=== PATIENT | female | born 1995 | race African-American/Black ===

== ENCOUNTER 2019-08-20 10:48 | Emergency (ER) | payer SELFPAY ==
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
== END 2019-08-20 13:30 | disposition home or self-care (01) ==
LOC: JD.ED 10:48
DX: T33.531A Superficial frostbite of right finger(s), initial encounter (principal); E66.9 Obesity, unspecified; Z68.41 Body mass index [BMI] 40.0-44.9, adult; Z91.018 Allergy to other foods; Z91.040 Latex allergy status; X31.XXXA Exposure to excessive natural cold, initial encounter
CPT/HCPCS: 99282; 99283

== ENCOUNTER 2019-10-05 11:23 | Emergency (ER) | payer SELFPAY ==
[2019-10-05] MEDS ORDERED: Morphine 4 MG/ML Syringe IVPUSH ONE (11:38)
[2019-10-05] MEDS ORDERED: Ondansetron 4 MG/2 ML SDV IVPUSH ONE (11:38)
[2019-10-05] MEDS ORDERED: Sodium Chloride 0.9% 1,000 ML IV ONE (11:40)
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
[2019-10-05 12:32] LABS: ACETAMINOPHEN 0 ug/mL (10-30)
--- NOTE | 2019-10-05 13:03 | US ---
Limited abdominal ultrasound: Multiple real-time images of the upper right abdomen were obtained. Comparison: No previous study. Liver contains no focal parenchymal abnormality. Contracted gallbladder around gallstones is noted. Common bile duct is dilated up to 9.9 mm. No definite choledocholithiasis is seen although the distal duct is not visualized on this exam. Pancreas should shows no discrete abnormality. Right kidney shows no hydronephrosis or mass. Right kidney has a length of 11.3 cm. Inferior vena cava is patent. Main portal vein shows normal hepatopedal flow. Impression: 1. Contracted gallbladder around gallstones. Common bile duct dilated at 9.9 mm. 2. No additional abnormality is appreciated on right upper quadrant abdominal ultrasound Diagnostic code #3 Study was dictated in [place] Standard Time
[2019-10-05] MEDS ORDERED: HYDROmorphone 0.5 MG/0.5 ML Syringe IVPUSH ONE (13:06)
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
== END 2019-10-05 14:57 | disposition home or self-care (01) ==
LOC: JD.ED 11:23
DX: O99.619 Diseases of the digestive system complicating pregnancy, unspecified trimester (principal); K81.9 Cholecystitis, unspecified; O23.40 Unspecified infection of urinary tract in pregnancy, unspecified trimester; O99.210 Obesity complicating pregnancy, unspecified trimester; Z91.018 Allergy to other foods; Z91.040 Latex allergy status
CPT/HCPCS: 36415; 76705; 80053; 80329; 81001; 83690; 84703; 85025; 87086; 87088; 87186; 96361; 96374; 96375; 99284; J1170; J2270; J2405; J7030; G0480

== ENCOUNTER 2019-10-06 14:35 | Day surgery (SDC) | payer SELFPAY ==
[2019-10-06] MEDS ORDERED: Sodium Chloride 0.9% 1,000 ML IV ONE (14:51)
[2019-10-06] MEDS ORDERED: Sodium Chloride 0.9% 10 ML Syringe FLUSH PRN (14:51)
[2019-10-06] MEDS ORDERED: HYDROmorphone 1 MG/ML Syringe IVPUSH ONE ×2 (14:51→16:37)
[2019-10-06] MEDS ORDERED: Ondansetron 4 MG/2 ML SDV IVPUSH ONE (14:51)
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
[2019-10-06] MEDS ORDERED: Bupivacaine 0.5%/EPINEPHrine 1:200,000 50 ML MDV ONE (16:32)
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
[2019-10-06] MEDS ORDERED: Rocuronium 50 MG/5 ML Vial ONE (17:01)
[2019-10-06] MEDS ORDERED: fentaNYL 250 MCG/5 ML SDV ONE (17:01)
[2019-10-06] MEDS ORDERED: Succinylcholine/Normal Saline 100 MG/5 ML Syringe ONE (17:01)
[2019-10-06] MEDS ORDERED: Propofol 200 MG/20 ML SDV ONE ×3 (17:01→17:45)
[2019-10-06] MEDS ORDERED: HYDROmorphone 0.5 MG/0.5 ML Syringe ONE ×2 (17:24→17:32)
[2019-10-06] MEDS ORDERED: ceFAZolin 1 GM Vial ONE (17:25)
[2019-10-06] MEDS ORDERED: Lidocaine 1% 6 ML ONE (17:27)
[2019-10-06] MEDS ORDERED: Ondansetron 4 MG/2 ML SDV ONE (17:43)
[2019-10-06] MEDS ORDERED: Neostigmine Methylsulfate 1 MG/ML 5 ML Syringe ONE (17:51)
[2019-10-06] MEDS ORDERED: Lactated Ringers 1,000 ML ONE ×2 (18:02)
--- NOTE | 2019-10-06 18:11 | PCM.PRNOTE ---
- Free Text/Narrative Note: Operative Report Operation: laparoscopic cholecystectomy Date: 10/06/2019 Attending Surgeon: Jose Miguel Worley MD Indication for Surgery: acute cholecystitis Preoperative antibiotics: 3 g Ancef IV VTE prophylaxis: SCDs Estimated Blood Loss: 10 cc Findings: Patient noted to be in early first trimester of pre- operatively. Mild omental adhesions to gallbladder, which did not appear acutely inflamed. Numerous gallstones with dilated cystic duct. Detailed Report: The patient underwent general endotracheal anesthesia after being placed supine on the operating table and initial timeout. A lucas catheter was placed. The abdomen was prepped and draped in sterile fashion. A pre-incision timeout was performed confirming the patients identity and the operation to be performed. A Veress needle was inserted into the abdominal cavity below the left costal margin along the mid-clavicular line. The abdomen was insufflated with CO2 to 15 mm Hg. Gas was aspirated superior to the umbilicus with a syringe in order to ensure safe placement of a 5 mm bladed laparoscopic port. The 5mm 30 degree laparoscope was then inserted and viscera inspected. The gallbladder appeared relatively normal but had palpable gallstones. Two additional 5 mm ports were placed along the right subcostal region under direct vision with the laparoscope , and a 12 mm port was placed at the subxiphoid region. The gallbladder was grasped at the fundus with a locking grasper and retracted anteriorly and superiorly, exposing the infundibulum. This was grasped with the surgeons left hand grasper and retracted laterally. The hook electrode was used to open the overlying peritoneum, and this plane of dissection was developed along the edges of the gallbladder at its interface with the liver bed. A combination of hook electrode and the [place] grasper were used to carefully expose and skeletonize the cystic duct and artery. A critical view of safety was obtained. Hemolock clips were then placed on both structures. The duct and artery were transected with laparoscopic scissors between the hemolock clips. The hook was then used to dissect the gallbladder free from its attachment to the liver. The specimen was then placed in an Endocatch bag and removed through the subxiphoid port. The liver bed was inspected and appeared hemostatic. The larger subxiphoid port was closed at the level of the fascia with vicryl suture using the PMI laparoscopic suture passer. Pneumoperitoneum was then released. All skin incisions were then closed with placement of subcuticular vicryl suture and dressed with dermabond. A total of 18 cc 0.5% marcaine with epinephrine was used for local anesthesia at the incision sites. The patient tolerated the operation well, was extubated in the operating room and transferred to the PACU for routine post-anesthesia care. Jose Miguel Worley MD General Surgery
[2019-10-06] MEDS ORDERED: HYDROmorphone 0.5 MG/0.5 ML Syringe IVPUSH PRN (18:34)
[2019-10-06] MEDS ORDERED: fentaNYL 100 MCG/2 ML SDV IVPUSH PRN (18:34)
--- NOTE | 2019-10-06 18:38 | PCM.POSTAN ---
POST ANESTHESIA ASSESSMENT - MENTAL STATUS Mental Status: Somnolent - VITAL SIGNS Vital Signs: Last Vital Signs Temp 97.2 F 10/06/19 18:30 Pulse 92 10/06/19 18:30 Resp 15 10/06/19 18:30 BP 103/60 10/06/19 18:30 Pulse Ox 100 10/06/19 18:30 - RESPIRATORY Respiratory Status: Respiratory Rate WNL, Airway Patent, O2 Saturation Stable, Supplemental Oxygen (FM O2, oral a/w ) - CARDIOVASCULAR CV Status: Blood Pressure Stable, Elevated Pulse Rate - GASTROINTESTINAL GI Status: No Symptoms - PAIN Pain Score: 0 - POST OP HYDRATION Hydration Status: Adequate & Stable
--- NOTE | 2019-10-06 20:02 | PCM48HPAN ---
Post Anesthesia Note - EVALUATION WITHIN 48HRS OF ANESTHETIC Vital Signs in Normal Range: Yes Patient Participated in Evaluation: Yes Respiratory Function Stable: Yes Airway Patent: Yes Cardiovascular Function Stable: Yes Hydration Status Stable: Yes Pain Control Satisfactory: Yes Nausea and Vomiting Control Satisfactory: Yes Mental Status Recovered: Yes Vital Signs: Last Vital Signs Temp 97.1 F 10/06/19 19:30 Pulse 76 10/06/19 19:30 Resp 18 10/06/19 19:30 BP 118/81 10/06/19 19:30 Pulse Ox 93 L 10/06/19 19:30
[2019-10-06] MEDS ORDERED: Acetaminophen 325 MG Tab PO PRN (21:14)
[2019-10-06] MEDS ORDERED: oxyCODONE 5 MG Tab PO PRN (21:16)
[2019-10-06] MEDS: Acetaminophen 325 MG Tab PO PRN (21:51)
[2019-10-07] MEDS: Acetaminophen 325 MG Tab PO PRN (05:39)
--- NOTE | 2019-10-07 07:54 | PCM.DCSUM1 ---
Discharge Summary - Hospital Course Free Text/Narrative:: Presented with ongoing RUQ pain, nausea and vomiting with several gallstones in gallbladder. Underwent routine laparoscopic cholecystectomy 10/06/2019 and stayed in house overnight. She was found to have a positive UA and urine culture from her ED visit on 10/05 and nitrofurantoin was prescribed. - Discharge Data Discharge Date: 10/07/19 Discharge Disposition: Home, Self-Care 01 Condition: Good - Referral to Home Health Primary Care Physician: PCP None - Patient Instructions Diet: Regular Diet as Tolerated Activity: No Lifting Over 10 Pounds Showering/Bathing: January Shower Wound/Incision Care: Keep Operative Site/Wound Site Clean and Dry Notify Provider of: Fever, Increased Pain, Swelling and Redness, Drainage - Discharge Plan *PRESCRIPTION DRUG MONITORING PROGRAM REVIEWED*: Not Applicable *COPY OF PRESCRIPTION DRUG MONITORING REPORT IN PATIENT NASH: Not Applicable Prescriptions/Med Rec: Nitrofurantoin 100 gm MC QID #30 powder oxyCODONE 5 mg PO Q4H #10 tab Home Medications: Home Meds [id number]/Iron Fumarate/FA/DSS [ 19 Tablet] 1 each PO DAILY 08/20/19 [ History] oxyCODONE 5 mg PO Q4H #10 tab 10/06/19 [Rx] Nitrofurantoin 100 gm MC QID #30 powder 10/07/19 [Rx] Patient Handouts: Oxycodone tablets or capsules, Laparoscopic Cholecystectomy, Laparoscopic Cholecystectomy, Care After, [id number], and Urinary Tract Infection Forms: ED Department Discharge Referrals: PCP,None [Primary Care Provider] - - Discharge Summary/Plan Comment DC Time >30 min.: No - Patient Data Vitals - Most Recent: Last Vital Signs Temp 36.6 C 10/06/19 20:03 Pulse 77 10/06/19 20:03 Resp 18 10/06/19 20:03 BP 124/85 10/06/19 20:03 Pulse Ox 99 10/06/19 20:03 Weight - Most Recent: 107.955 kg I&O - Last 24 hours: Intake & Output 10/06/19 10/07/19 10/07/19 22:59 06:59 14:59 Intake Total 1880 620 Output Total 550 900 Balance 1330 -280 Lab Results - Last 24 hrs: Laboratory Results - last 24 hr 10/06/19 10/06/19 Range/Units 15:10 15:10 WBC 6.76 (3.98-10.04) K/mm3 RBC 4.76 (3.98-5.22) M/mm3 Hgb 13.0 (11.2-15.7) gm/dl Hct 40.4 (34.1-44.9) % MCV 84.9 (79.4-94.8) fl MCH 27.3 (25.6-32.2) pg MCHC 32.2 (32.2-35.5) g/dl RDW Std Deviation 41.9 (36.4-46.3) fL Plt Count 374 H (182-369) K/mm3 MPV 10.1 (9.4-12.3) fl Neut % (Auto) 39.1 (34.0-71.1) % Lymph % (Auto) 51.2 (19.3-51.7) % [place] % (Auto) 8.9 (4.7-12.5) % Eos % (Auto) 0.4 L (0.7-5.8) Baso % (Auto) 0.3 (0.1-1.2) % Neut # (Auto) 2.64 (1.56-6.13) K/mm3 Lymph # (Auto) 3.46 (1.18-3.74) K/mm3 [place] # (Auto) 0.60 H (0.24-0.36) K/mm3 Eos # (Auto) 0.03 L (0.04-0.36) K/mm3 Baso # (Auto) 0.02 (0.01-0.08) K/mm3 Sodium 136 (136-145) mEq/L Potassium 3.8 (3.5-5.1) mEq/L Chloride 102 (98-107) mEq/L Carbon Dioxide 21 (21-32) mEq/L Anion Gap 16.8 H (5-15) BUN 7 (7-18) mg/dL Creatinine 0.7 (0.55-1.02) mg/dL Est Cr Clr Drug Dosing 107.01 mL/min Estimated GFR (MDRD) > 60 (>60) mL/min BUN/Creatinine Ratio 10.0 L (14-18) Glucose 88 (74-106) mg/dL Calcium 9.1 (8.5-10.1) mg/dL Total Bilirubin 0.6 (0.2-1.0) mg/dL AST 11 L (15-37) U/L ALT 26 (14-59) U/L Alkaline Phosphatase 84 (46-116) U/L Total Protein 7.4 (6.4-8.2) g/dl Albumin 3.7 (3.4-5.0) g/dl Globulin 3.7 gm/dL Albumin/Globulin Ratio 1.0 (1-2) Lipase 46 L (73-393) U/L Med Orders - Current: Current Medications Acetaminophen (Tylenol) 650 mg PO Q6H PRN PRN Reason: Pain Last Admin: 10/07/19 05:39 Dose: 650 mg Oxycodone HCl (Oxycodone) 5 mg PO Q4H PRN PRN Reason: Pain Sodium Chloride (Saline Flush) 10 ml FLUSH ASDIRECTED PRN PRN Reason: Keep Vein Open Last Admin: 10/06/19 15:16 Dose: 10 ml Discontinued Medications Bupivacaine HCl/Epinephrine Bitart (Marcaine 0.5%/Epinephrine 1:200,000) Confirm Administered Dose 50 ml .ROUTE .STK-MED ONE Stop: 10/06/19 16:33 Last Admin: 10/06/19 17:26 Dose: 18 ml Cefazolin Sodium (Ancef) Confirm Administered Dose 3 gm .ROUTE .STK-MED ONE Stop: 10/06/19 17:26 Fentanyl (Sublimaze) Confirm Administered Dose 250 mcg .ROUTE .STK-MED ONE Stop: 10/06/19 17:02 Fentanyl (Sublimaze) 100 mcg IVPUSH ONETIME PRN PRN Reason: Pain Last Admin: 10/06/19 18:47 Dose: 100 mcg Glycopyrrolate () Confirm Administered Dose 1 mg .ROUTE .STK-MED ONE Stop: 10/06/19 17:25 Hydromorphone HCl (Dilaudid) 1 mg IVPUSH ONETIME ONE Stop: 10/06/19 14:52 Last Admin: 10/06/19 15:16 Dose: 1 mg Hydromorphone HCl (Dilaudid) 1 mg IVPUSH ONETIME ONE Stop: 10/06/19 16:38 Last Admin: 10/06/19 16:45 Dose: 1 mg Hydromorphone HCl (Dilaudid) Confirm Administered Dose 0.5 mg .ROUTE .STK-MED ONE Stop: 10/06/19 17:25 Hydromorphone HCl (Dilaudid) Confirm Administered Dose 0.5 mg .ROUTE .STK-MED ONE Stop: 10/06/19 17:33 Hydromorphone HCl (Dilaudid) 0.5 mg IVPUSH Q10M PRN PRN Reason: Pain (severe 7-10) Last Admin: 10/06/19 19:05 Dose: 0.5 mg Sodium Chloride (Normal Saline) 1,000 mls @ 1,000 mls/hr IV ONETIME ONE Stop: 10/06/19 15:50 Last Admin: 10/06/19 15:15 Dose: 1,000 mls/hr Lidocaine HCl (Xylocaine-Mpf 1%) Confirm Administered Dose 6 mls @ as directed .ROUTE .ST-MED ONE Stop: 10/06/19 17:28 Lactated Ringer's (Ringers, Lactated) Confirm Administered Dose 1,000 mls @ as directed .ROUTE .ST-MED ONE Stop: 10/06/19 18:03 Lactated Ringer's (Ringers, Lactated) Confirm Administered Dose 1,000 mls @ as directed .ROUTE .STK-MED ONE Stop: 10/06/19 18:03 Neostigmine Methylsulfate (Neostigmine) Confirm Administered Dose 5 mg .ROUTE .ST-MED ONE Stop: 10/06/19 17:52 Ondansetron HCl (Zofran) 4 mg IVPUSH ONETIME ONE Stop: 10/06/19 14:52 Last Admin: 10/06/19 15:15 Dose: 4 mg Ondansetron HCl (Zofran) Confirm Administered Dose 8 mg .ROUTE .STK-MED ONE Stop: 10/06/19 17:44 Propofol (Diprivan 20 Ml) Confirm Administered Dose 600 mg .ROUTE .STK-MED ONE Stop: 10/06/19 17:02 Propofol (Diprivan 20 Ml) Confirm Administered Dose 200 mg .ROUTE .STK-MED ONE Stop: 10/06/19 17:04 Propofol (Diprivan 20 Ml) Confirm Administered Dose 600 mg .ROUTE .STK-MED ONE Stop: 10/06/19 17:46 Rocuronium [place] (Zemuron) Confirm Administered Dose 50 mg .ROUTE .STK-MED ONE Stop: 10/06/19 17:02 Succinylcholine Chloride (Succinylcholine In Ns Pf) Confirm Administered Dose 200 mg .ROUTE .STK-MED ONE Stop: 10/06/19 17:02
[2019-10-07] MEDS ORDERED: Nitrofurantoin Monohydrate/Macrocrystalline 100 MG Cap PO ONE (08:00)
== END 2019-10-07 15:05 | disposition home or self-care (01) ==
LOC: JD.ED 14:35 → JD.SDS 16:51 → JD.MS 20:13 → JD.SDS 10-07 15:05
PROVIDERS: ATTEND Surgery
DX: O99.611 Diseases of the digestive system complicating pregnancy, first trimester (principal); K80.10 Calculus of gallbladder with chronic cholecystitis without obstruction; E66.9 Obesity, unspecified; Z91.018 Allergy to other foods; Z91.040 Latex allergy status; Z68.41 Body mass index [BMI] 40.0-44.9, adult
CPT/HCPCS: 36415; 47562; 80053; 83690; 85025; A9270; J0330; J0690; J1170; J2001; J2405; J2704; J2710; J3010; J3490; J7030; J7120; 00790; 96361; 96374; 96375; 99284; 99284-25

== ENCOUNTER 2019-10-28 20:30 | Emergency (ER) | payer SELFPAY ==
[2019-10-28] MEDS ORDERED: Sodium Chloride 0.9% 10 ML Syringe FLUSH PRN (21:21)
[2019-10-28] MEDS ORDERED: Ondansetron 4 MG/2 ML SDV IVPUSH ONE (21:21)
[2019-10-28] MEDS ORDERED: Sodium Chloride 0.9% 1,000 ML IV SCH (21:30)
[2019-10-28] MEDS ORDERED: Alum Hydrox/Mag Hydrox/Simeth 30 ML, Lidocaine 2% 15 ML PO ONE ×2 (21:38)
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
[2019-10-28] MEDS ORDERED: Magnesium Citrate Solution 296 ML Bottle PO ONE (22:37)
== END 2019-10-28 23:15 | disposition home or self-care (01) ==
LOC: JD.ED 20:30
DX: O99.611 Diseases of the digestive system complicating pregnancy, first trimester (principal); K29.70 Gastritis, unspecified, without bleeding; O99.211 Obesity complicating pregnancy, first trimester; E66.9 Obesity, unspecified; Z3A.09 9 weeks gestation of pregnancy; Z90.49 Acquired absence of other specified parts of digestive tract; Z91.040 Latex allergy status; Z88.8 Allergy status to other drugs, medicaments and biological substances; Z91.018 Allergy to other foods
CPT/HCPCS: 36415; 80053; 81001; 85025; 96361; 96374; 99284; A9270; J2405; J7030

== ENCOUNTER 2020-04-06 18:47 | Emergency (ER) | payer MEDICAID ==
[2020-04-06] MEDS ORDERED: Betamethasone Acetate/Betamethasone Sod Phosphate 30 MG/5 ML MDV IM ONE (18:50)
== END 2020-04-06 18:48 | disposition home or self-care (01) ==
LOC: JD.ED 18:47 → JD.WOMH 18:47 → JD.ED 18:47 → JD.WOMH 18:48
DX: O60.03 Preterm labor without delivery, third trimester (principal); Z3A.32 32 weeks gestation of pregnancy
CPT/HCPCS: J0702

== ENCOUNTER 2020-05-25 04:38 | Inpatient (IN) | payer MEDICAID ==
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
[~2020-05-25 04:38] MED LIST: Lactated Ringers 1,000 ML IV SCH; Oxytocin/Lactated Ringers 10 UNIT/1,000 ML BAG IV SCH; Sodium Chloride 0.9% 10 ML Syringe FLUSH PRN
[2020-05-25] MEDS ORDERED: Metoclopramide 10 MG/2 ML SDV IVPUSH ONE (06:00)
[2020-05-25] MEDS ORDERED: Citric Acid/Sodium Citrate Solution 30 ML Cup PO ONE (06:00)
[2020-05-25] MEDS ORDERED: ceFAZolin 2 GM in Premix Bag 1 BAG IV ONE (06:30)
[2020-05-25] MEDS ORDERED: Bupivacaine 0.5% 30 ML SDV ONE (07:10)
[2020-05-25] MEDS ORDERED: ceFAZolin 1 GM Vial ONE (07:14)
[2020-05-25] MEDS ORDERED: Phenylephrine 1% 10 MG/ML SDV ONE (07:14)
[2020-05-25] MEDS ORDERED: Morphine 10 MG/ML SDV ONE (07:16)
[2020-05-25] MEDS ORDERED: Morphine PF 1 MG/ML Amp ONE (07:16)
[2020-05-25] MEDS ORDERED: Oxytocin 10 Units/1 ML SDV ONE (07:17)
[2020-05-25] MEDS ORDERED: Ketorolac 30 MG/ML SDV ONE (07:17)
[2020-05-25] MEDS ORDERED: Lactated Ringers 1,000 ML ONE ×2 (07:19→08:53)
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
--- NOTE | 2020-05-25 09:29 | PCM.POSTAN ---
POST ANESTHESIA ASSESSMENT - MENTAL STATUS Mental Status: Alert, Oriented - VITAL SIGNS Vital Signs: Last Vital Signs Temp 36.2 C 05/25/20 04:59 Pulse 103 H 05/25/20 04:59 Resp 16 05/25/20 04:59 BP 123/84 05/25/20 04:59 Pulse Ox 99 05/25/20 04:59 - RESPIRATORY Respiratory Status: Respiratory Rate WNL, Airway Patent, O2 Saturation Stable - CARDIOVASCULAR CV Status: Pulse Rate WNL, Blood Pressure Stable - GASTROINTESTINAL GI Status: No Symptoms - PAIN Pain Score: 0 - POST OP HYDRATION Hydration Status: Adequate & Stable - OBSERVATIONS Free Text/Narrative:: no anesthesia complications noted
--- NOTE | 2020-05-25 10:54 | PCM.OPNOTE ---
- General Post-Op/Procedure Note Date of Surgery/Procedure: 05/25/20 Operative Procedure(s): Repeat section with lysis of adhesions on the uterus. Findings: Live male delivered in vertex presentation on 05/25/2020 at 08:25. Apgars of 7 and 9. weight of 3230 g (7 pounds 1.9 ounces) grossly normal- appearing uterus and bilateral fallopian tubes and ovaries. Uterus had 2 areas of adhesions to the omentum. One area was in the right lower quadrant of the anterior portion of the uterus. The other was near the left fundal portion of the uterus. These were lysed during the procedure. Pre Op Diagnosis: 39 weeks gestational age, history of section, desires repeat section, bipolar disorder, schizophrenia, obesity in and -[place] ancestry Post-Op Diagnosis: Same Anesthesia Technique: Spinal Primary Surgeon: Sukhi Malin Anesthesia Provider: Tu Purdy Wax Pourer: Jesus Russo Wax Pourer: Lisette Boone (PA student) Reason Wax Pourer Was Necessary: Patient safety and reduction of morbidity and mortality. Role of Wax Pourer: Retraction for visualization during procedure Pathology: None Fluid Replacement, Intraop: 3,000 Output, Urine Amount: 100 EBL in mLs: 700 Complications: None Condition: Good Free Text/Narrative:: Intake & Output 05/24/20 05/25/20 05/25/20 22:59 06:59 14:59 Intake Total 250 Output Total 40 Balance 210 Procedure in Detail: The patient was seen in room #5 and the risks, benefits and complications were discussed with the patient. The patient desired to proceed with section and appropriate consents were reviewed and signed. The patient was taken to operating room #1. A Time Out was held and the patient was identified using 2 identifiers and the procedure was confirmed. The patient was given spinal anesthesia and was placed in dorsal supine position with leftward tilt. She was given 2 g Ancef for antibiotic prophylaxis. A Keith catheter was inserted without difficulty. The patient was prepped and draped in the usual sterile manner. The abdominal skin was tested and the spinal anesthesia was found to be adequate. The skin was injected with 0.5% marcaine for local anesthesia. A Pfannenstiel skin incision was made and carried down through the subcutaneous tissue to the fascia with the scapel. The fascia was nicked in the midline using a scalpel and the fascial incision was extended transversely with Coates scissors. The inferior aspect of the fascia was grasped with Reyes clamps and tented upwards. The fascia was from the underlying rectus muscle sharply with Coates scissors. Attention was then turned to the superior aspect of the fascia and was grasped using Reyes clamps and tented upwards. The underlying rectus muscle was dissected off bluntly and sharply with Coates scissors. The peritoneum was identified and entered bluntly. The midline of the rectus muscles was then further with sharp dissection using straight Coates scissors. The utero-vesical peritoneal reflection was identified and the peritoneum was incised with [place]zenabaum scissors and transversely extended. The bladder blade was inserted and the lower uterine segment was identified. A low transverse uterine incision was made sharply with a scalpel and extended laterally bluntly. The 's head was brought to the uterine incision, the bladder blade was removed and the was delivered atraumatically. On 05/25/2020 a live male was delivered in vertex position at 08:25, wt of 3230 grams, 7 pounds and 1.9 ounces. APGARS were 7 & 9. The nose and mouth were suctioned with bulb suction, the cord was doubly clamped and cut and infant was transferred to the awaiting passenger screener. The placenta was removed intact and appeared normal with a three vessel cord. The uterus was exteriorized and the uterine cavity was cleaned using lap sponges. There was an adhesion from the omentum to the right lower quadrant of the anterior surface of the uterus that was cauterized using Bovie cautery. There is also an adhesion from the omentum to the left uterine fundus that was cauterized using Bovie cautery. The hysterotomy was closed with a running locked suture of 0-Vicryl. A second suture of 0 Monocryl was used to imbricate the hysterotomy. The hysterotomy was hemostatic. The uterus, tubes and ovaries appeared overall normal. The uterus was then returned into the abdominal cavity. There was a small area in the midline of the hysterotomy that was having a small amount of bleeding. A [id number] suture using 0 Monocryl was used to make the area hemostatic. The hysterotomy was noted to remain hemostatic inside the abdominal cavity. The fascia was noted to be hemostatic and the fascia was then reapproximated with running sutures of 0-Vicryl. During repair of the fascia there was noted to be additional bleeding and the abdominal cavity was explored and the adhesion to the right lower quadrant of the anterior surface of the uterus was noted to be bleeding and this was made hemostatic with a free tie of 0 Monocryl. The surface of the uterus where the adhesion was attached to was also noted to have some bleeding and this was made hemostatic with cauterization. The subcutaneous fat was reapproximated using 0 Vicryl. The skin was reapproximated using 4-0 Monocryl and Steri-strips were applied over the incision. Instrument, sponge, and needle counts were correct prior to the abdominal closure and at the conclusion of the case. Sukhi Malin MD 10:54 AM 05/25/2020
[2020-05-25] MEDS ORDERED: Naloxone 0.4 MG/ML SDV IVPUSH PRN (11:46)
[2020-05-25] MEDS ORDERED: Acetaminophen/oxyCODONE 325-5 MG Tab PO PRN (11:46)
[2020-05-25] MEDS ORDERED: Dextrose 5%-Lactated Ringers 1,000 ML IV SCH (11:46)
[2020-05-25] MEDS ORDERED: ePHEDrine 50 MG/ML SDV IVPUSH PRN (11:46)
[2020-05-25] MEDS ORDERED: Oxytocin/Lactated Ringers 10 UNIT/1,000 ML BAG IV SCH (11:46)
[2020-05-25] MEDS ORDERED: diphenhydrAMINE 50 MG/ML SDV IVPUSH PRN (11:46)
[2020-05-25] MEDS: Docusate Sodium 100 MG Cap PO SCH (12:31)
[2020-05-25] MEDS: Ketorolac 30 MG/ML SDV IVPUSH SCH ×2 (15:06→21:05)
[2020-05-25] MEDS ORDERED: Magnesium Hydroxide 400 MG/5 ML Susp 30 ML Cup PO PRN (21:00)
[2020-05-26] MEDS: Docusate Sodium 100 MG Cap PO SCH ×3 (01:00→23:40)
[2020-05-26] MEDS: Ketorolac 30 MG/ML SDV IVPUSH SCH (02:56)
--- NOTE | 2020-05-26 08:20 | PCM48HPAN ---
Post Anesthesia Note - EVALUATION WITHIN 48HRS OF ANESTHETIC Vital Signs in Normal Range: Yes Patient Participated in Evaluation: Yes Respiratory Function Stable: Yes Airway Patent: Yes Cardiovascular Function Stable: Yes Hydration Status Stable: Yes Pain Control Satisfactory: Yes Nausea and Vomiting Control Satisfactory: Yes Mental Status Recovered: Yes Vital Signs: Last Vital Signs Temp 36.5 C 05/26/20 04:43 Pulse 106 H 05/26/20 05:13 Resp 16 05/26/20 07:00 BP 126/66 05/26/20 04:43 Pulse Ox 97 05/26/20 07:00
--- NOTE | 2020-05-26 09:15 | PCM.SN.2 ---
- Free Text/Narrative Note: Post Operative Progress Note POD #1 Subjective: Doing well overall. Ambulating without difficulty. Lochia minimal. Keith removed earlier this morning and has not voided since removal. Passing small amounts of flatus. Tolerating regular diet without nausea or vomiting. Pain controlled with IV Toradol. Breast-feeding with minimal difficulty. Objective: Vitals: Vital Signs - 24 hr 05/25/20 05/25/20 05/25/20 09:23 09:30 09:45 Temperature Temperature [ 36.6 C 36.6 C 36.6 C Temporal] Pulse, Peripheral Pulse, 97 102 H 103 H Peripheral [ Pulse Oximetry] Respiratory 14 22 H 21 H Rate Blood Pressure Blood Pressure 123/75 123/79 127/84 [Left Upper] O2 Sat by Pulse 97 100 100 Oximetry 05/25/20 05/25/20 05/25/20 10:00 10:14 10:20 Temperature 35.7 C L Temperature [ 36.6 C Temporal] Pulse, 97 Peripheral Pulse, 94 Peripheral [ Pulse Oximetry] Respiratory 18 16 Rate Blood Pressure 108/61 Blood Pressure 124/67 [Left Upper] O2 Sat by Pulse 100 98 100 Oximetry 05/25/20 05/25/20 05/25/20 11:42 13:04 15:32 Temperature 35.9 C L Temperature [ Temporal] Pulse, 85 92 93 Peripheral Pulse, Peripheral [ Pulse Oximetry] Respiratory 16 16 Rate Blood Pressure 128/81 130/76 122/75 Blood Pressure [Left Upper] O2 Sat by Pulse 100 100 98 Oximetry 05/25/20 20:21 Temperature 36.8 C Temperature [ Temporal] Pulse, 98 Peripheral Pulse, Peripheral [ Pulse Oximetry] Respiratory 16 Rate Blood Pressure 124/105 H Blood Pressure [Left Upper] O2 Sat by Pulse 95 Oximetry 05/26/20 00:33 Temperature Temperature [ Temporal] Pulse, 105 H Peripheral Pulse, Peripheral [ Pulse Oximetry] Respiratory Rate Blood Pressure 118/75 Blood Pressure [Left Upper] O2 Sat by Pulse 98 Oximetry 05/26/20 04:43 Temperature 36.5 C Temperature [ Temporal] Pulse, 99 Peripheral Pulse, Peripheral [ Pulse Oximetry] Respiratory 16 Rate Blood Pressure 126/66 Blood Pressure [Left Upper] O2 Sat by Pulse 97 Oximetry Physical Exam General: Alert and oriented, no acute distress Lungs: Clear to auscultation bilaterally Heart: Regular rate and rhythm Abdomen: Soft, minimal appropriate tenderness, non-distended, fundus midline, nontender and at the umbilicus Incision: Clean, dry and intact, no erythema, bleeding or drainage with Steri- Strips in place Extremities: No edema Labs: Laboratory Results - last 24 hr 05/25/20 05/25/20 05/26/20 Range/Units 05:45 15:00 04:36 WBC 9.60 10.54 H (3.98-10.04) K/mm3 RBC 3.69 L 3.60 L (3.98-5.22) M/mm3 Hgb 10.0 L 9.7 L (11.2-15.7) gm/dl Hct 31.6 L 30.9 L (34.1-44.9) % MCV 85.6 85.8 (79.4-94.8) fl MCH 27.1 26.9 (25.6-32.2) pg MCHC 31.6 L 31.4 L (32.2-35.5) g/dl RDW Std Deviation 43.1 42.8 (36.4-46.3) fL Plt Count 206 216 (182-369) K/mm3 MPV 11.3 11.9 (9.4-12.3) fl Neut % (Auto) 62.4 59.8 (34.0-71.1) % Lymph % (Auto) 27.4 25.2 (19.3-51.7) % [place] % (Auto) 9.3 13.2 H (4.7-12.5) % Eos % (Auto) 0.5 L 1.3 (0.7-5.8) Baso % (Auto) 0.1 0.2 (0.1-1.2) % Neut # (Auto) 5.99 6.30 H (1.56-6.13) K/mm3 Lymph # (Auto) 2.63 2.66 (1.18-3.74) K/mm3 [place] # (Auto) 0.89 H 1.39 H (0.24-0.36) K/mm3 Eos # (Auto) 0.05 0.14 (0.04-0.36) K/mm3 Baso # (Auto) 0.01 0.02 (0.01-0.08) K/mm3 RPR Non-reactive (NONREACTIVE) ASSESSMENT: 24-year-old female -0-0-3 s/p repeat section POD #1 for history of section, complicated by bipolar disorder, schizophrenia, obesity in , and ancestry PLAN: Doing well Breast-feeding with minimal difficulty. Assist as needed Incision healing well. Continue to keep clean and dry. Lochia minimal. Continue to monitor for appropriate lochia. Continue routine post-operative care Transition to oral medications including ibuprofen and Percocet for control of pain Monitor for ability to urinate after removal of Keith catheter this morning Anticipate discharge home tomorrow Sukhi Malin MD 9:13 AM 05/26/2020
[2020-05-26] MEDS: Ibuprofen 600 MG Tab PO PRN ×2 (09:19→15:48)
[2020-05-26] MEDS: Pantoprazole 40 MG Tab.CR PO SCH (09:19)
[2020-05-26] MEDS: Prenatal Multivitamin with Calcium/Folic Acid/Iron Tab PO SCH (09:19)
[2020-05-26] MEDS: Acetaminophen/oxyCODONE 325-5 MG Tab PO PRN ×2 (12:39→20:47)
[2020-05-27] MEDS: Acetaminophen/oxyCODONE 325-5 MG Tab PO PRN ×2 (03:09→11:29)
[2020-05-27] MEDS: Pantoprazole 40 MG Tab.CR PO SCH (07:57)
[2020-05-27] MEDS: Prenatal Multivitamin with Calcium/Folic Acid/Iron Tab PO SCH (08:25)
--- NOTE | 2020-05-27 10:21 | PCM.SN.2 ---
- Free Text/Narrative Note: Post Operative Progress Note POD #2 Subjective: Doing well overall. Ambulating without difficulty. Lochia minimal. Voiding without difficulty. Continues to pass small amounts of flatus. Tolerating regular diet without nausea or vomiting. Pain controlled with oral medications. Reports that she will wait until the pain becomes unbearable before requesting medications. Breast-feeding with minimal difficulty. Objective: Vitals: Vital Signs - 24 hr 05/26/20 05/26/20 05/27/20 15:53 20:50 03:04 Temperature 36.1 C 36.3 C 35.8 C L Pulse, 109 H 112 H 101 H Peripheral Respiratory 16 16 Rate Blood Pressure 127/64 133/75 138/85 O2 Sat by Pulse 98 99 100 Oximetry 05/27/20 08:52 Temperature 36.2 C Pulse, 110 H Peripheral Respiratory 14 Rate Blood Pressure 126/84 O2 Sat by Pulse 100 Oximetry Physical Exam General: Alert and oriented, no acute distress Lungs: Clear to auscultation bilaterally Heart: Regular rate and rhythm Abdomen: Soft, minimal appropriate tenderness, non-distended, fundus midline, nontender and at the umbilicus Incision: Clean, dry and intact, no erythema, bleeding or drainage with Steri- Strips in place Extremities: No edema ASSESSMENT: 24-year-old female -0-0-3 s/p repeat section POD #2 for history of section, complicated by bipolar disorder, schizophrenia, obesity in , and ancestry PLAN: Doing well Breast-feeding with minimal difficulty. Assist as needed Incision healing well. Continue to keep clean and dry. Lochia minimal. Continue to monitor for appropriate lochia. Continue routine post-operative care Continue oral medications including ibuprofen and Percocet for control of pain Patient evaluated by social work on day of delivery and requests reevaluation prior to discharge with her partner. We will set up for social work to be present at time of discharge. Discussed with patient that I would recommend for her to try to get better control of her pain and take the medications when the pain is starting to get more severe not when it is already severe pain. Discussed that this can allow for better pain control overall and require less medications. Patient states understanding. Discharge home today Sukhi Malin MD 10:18 AM 05/27/2020
--- NOTE | 2020-05-27 10:25 | PCM.DCSUM1 ---
Discharge Summary - Hospital Course Free Text/Narrative:: Procedure in Detail: The patient was seen in room #5 and the risks, benefits and complications were discussed with the patient. The patient desired to proceed with section and appropriate consents were reviewed and signed. The patient was taken to operating room #1. A Time Out was held and the patient was identified using 2 identifiers and the procedure was confirmed. The patient was given spinal anesthesia and was placed in dorsal supine position with leftward tilt. She was given 2 g Ancef for antibiotic prophylaxis. A Keith catheter was inserted without difficulty. The patient was prepped and draped in the usual sterile manner. The abdominal skin was tested and the spinal anesthesia was found to be adequate. The skin was injected with 0.5% marcaine for local anesthesia. A Pfannenstiel skin incision was made and ca rried down through the subcutaneous tissue to the fascia with the scapel. The fascia was nicked in the midline using a scalpel and the fascial incision was extended transversely with Coates scissors. The inferior aspect of the fascia was grasped with Reyes clamps and tented upwards. The fascia was from the underlying rectus muscle sharply with Coates scissors. Attention was then turned to the superior aspect of the fascia and was grasped using Reyes clamps and tented upwards. The underlying rectus muscle was dissected off bluntly and sharply with Coates scissors. The peritoneum was identified and entered bluntly. The midline of the rectus muscles was then further with sharp dissection using straight Coates scissors. The utero-vesical peritoneal reflection was identified and the peritoneum was incised with Metzenabaum scissors and transversely extended. The bladder blade was inserted and the lower uterine segment was identified. A low transverse uterine incision was made sharply with a scalpel and extended laterally bluntly. The infant's head was brought to the uterine incision, the bladder blade was removed and the infant was delivered atraumatically. On 05/25/2020 a live male infant was delivered in vertex position at 08:25, wt of 3230 grams, 7 pounds and 1.9 ounces. APGARS were 7 & 9. The nose and mouth were suctioned with bulb suction, the cord was doubly clamped and cut and infant was transferred to the awaiting browning processor. The placenta was removed intact and appeared normal with a three vessel cord. The uterus was exteriorized and the uterine cavity was cleaned using lap sponges. There was an adhesion from the omentum to the right lower quadrant of the anterior surface of the uterus that was cauterized using Bovie cautery. There is also an adhesion from the omentum to the left uterine fundus that was cauterized using Bovie cautery. The hysterotomy was closed with a running locked suture of 0-Vicryl. A second suture of 0 Monocryl was used to imbricate the hysterotomy. The hysterotomy was hemostatic. The uterus, tubes and ovaries appeared overall normal. The uterus was then returned into the abdominal cavity. There was a small area in the midline of the hysterotomy that was having a small amount of bleeding. A zylyfs-ve-rqcft suture using 0 Monocryl was used to make the area hemostatic. The hysterotomy was noted to remain hemostatic inside the abdominal cavity. The fascia was noted to be hemostatic and the fascia was then reapproximated with running sutures of 0-Vicryl. During repair of the fascia there was noted to be additional bleeding and the abdominal cavity was explored and the adhesion to the right lower quadrant of the anterior surface of the uterus was noted to be bleeding and this was made hemostatic with a free tie of 0 Monocryl. The surface of the uterus where the adhesion was attached to was also noted to have some bleeding and this was made hemostatic with cauterization. The subcutaneous fat was reapproximated using 0 Vicryl. The skin was reapproximated using 4-0 Monocryl and Steri-strips were applied over the incision. Instrument, sponge, and needle counts were correct prior to the abdominal closure and at the conclusion of the case. HPI Initial Comments: Procedure in Detail: The patient was seen in room #5 and the risks, benefits and complications were discussed with the patient. The patient desired to proceed with section and appropriate consents were reviewed and signed. The patient was taken to operating room #1. A Time Out was held and the patient was identified using 2 identifiers and the procedure was confirmed. The patient was given spinal anesthesia and was placed in dorsal supine position with leftward tilt. She was given 2 g Ancef for antibiotic prophylaxis. A Keith catheter was inserted without difficulty. The patient was prepped and draped in the usual sterile manner. The abdominal skin was tested and the spinal anesthesia was found to be adequate. The skin was injected with 0.5% marcaine for local anesthesia. A Pfannenstiel skin incision was made and carried down through the subcutaneous tissue to the fascia with the scapel. The fascia was nicked in the midline using a scalpel and the fascial incision was extended transversely with Coates scissors. The inferior aspect of the fascia was grasped with Reyes clamps and tented upwards. The fascia was from the underlying rectus muscle sharply with Coates scissors. Attention was then turned to the superior aspect of the fascia and was grasped using Reyes clamps and tented upwards. The underlying rectus muscle was dissected off bluntly and sharply with Coates scissors. The peritoneum was identified and entered bluntly. The midline of the rectus muscles was then further with sharp dissection using straight Coates scissors. The utero-vesical peritoneal reflection was identified and the peritoneum was incised with Metzenabaum scissors and transversely extended. The bladder blade was inserted and the lower uterine segment was identified. A low transverse uterine incision was made sharply with a scalpel and extended laterally bluntly. The infant's head was brought to the uterine incision, the bladder blade was removed and the was delivered atraumatically. On 05/25/2020 a live male was d elivered in vertex position at 08:25, wt of 3230 grams, 7 pounds and 1.9 ounces. APGARS were 7 & 9. The nose and mouth were suctioned with bulb suction, the cord was doubly clamped and cut and infant was transferred to the awaiting browning processor. The placenta was removed intact and appeared normal with a three vessel cord. The uterus was exteriorized and the uterine cavity was cleaned using lap sponges. There was an adhesion from the omentum to the right lower quadrant of the anterior surface of the uterus that was cauterized using Bovie cautery. There is also an adhesion from the omentum to the left uterine fundus that was cauterized using Bovie cautery. The hysterotomy was closed with a running locked suture of 0-Vicryl. A second suture of 0 Monocryl was used to imbricate the hysterotomy. The hysterotomy was hemostatic. The uterus, tubes and ovaries appeared overall normal. The uterus was then returned into the abdominal cavity. There was a small area in the midline of the hysterotomy that was having a small amount of bleeding. A tdycem-wd-sqeqx suture using 0 Monocryl was used to make the area hemostatic. The hysterotomy was noted to remain hemostatic inside the abdominal cavity. The fascia was noted to be hemostatic and the fascia was then reapproximated with running sutures of 0-Vicryl. During repair of the fascia there was noted to be additional bleeding and the abdominal cavity was explored and the adhesion to the right lower quadrant of the anterior surface of the uterus was noted to be bleeding and this was made hemostatic with a free tie of 0 Monocryl. The surface of the uterus where the adhesion was attached to was also noted to have some bleeding and this was made hemostatic with cauterization. The subcutaneous fat was reapproximated using 0 Vicryl. The skin was reapproximated using 4-0 Monocryl and Steri-strips were applied over the incision. Instrument, sponge, and needle counts were correct prior to the abdominal closure and at the conclusion of the case. Brief History: Procedure in Detail: The patient was seen in room #5 and the risks, benefits and complications were discussed with the patient. The patient desired to proceed with section and appropriate consents were reviewed and signed. The patient was taken to operating room #1. A Time Out was held and the patient was identified using 2 identifiers and the procedure was confirmed. The patient was given spinal anesthesia and was placed in dorsal supine position with leftward tilt. She was given 2 g Ancef for antibiotic prophylaxis. A Keith catheter was inserted without difficulty. The patient was prepped and draped in the usual sterile manner. The abdominal skin was tested and the spinal anesthesia was found to be adequate. The skin was injected with 0.5% marcaine for local anesthesia. A Pfannenstiel skin incision was made and carried down through the subcutaneous tissue to the fascia with the scapel. The fascia was nicked in the midline using a scalpel and the fascial incision was extended transversely with Coates scissors. The inferior aspect of the fascia was grasped with Reyes clamps and tented upwards. The fascia was from the underlying rectus muscle sharply with Coates scissors. Attention was then turned to the superior aspect of the fascia and was grasped using Reyes clamps and tented upwards. The underlying rectus muscle was dissected off bluntly and sharply with Coates scissors. The peritoneum was identified and entered bluntly. The midline of the rectus muscles was then further with sharp dissection using straight Coates scissors. The utero-vesical peritoneal reflection was identified and the peritoneum was incised with Metzenabaum scissors and transversely extended. The bladder blade was inserted and the lower uterine segment was identified. A low transverse uterine incision was made sharply with a scalpel and extended laterally bluntly. The 's head was brought to the uterine incision, the bladder blade was removed and the was delivered atraumatically. On 05/25/2020 a live male infant was delivered in vertex position at 08:25, wt of 3230 grams, 7 pounds and 1.9 ounces. APGARS were 7 & 9. The nose and mouth were suctioned with bulb suction, the cord was doubly clamped and cut and was transferred to the awaiting browning processor. The placenta was removed intact and appeared normal with a three vessel cord. The uterus was exteriorized and the uterine cavity was cleaned using lap sponges. There was an adhesion from the omentum to the right lower quadrant of the anterior surface of the uterus that was cauterized using Bovie cautery. There is also an adhesion from the omentum to the left uterine fundus that was cauterized using Bovie cautery. The hysterotomy was closed with a running locked suture of 0-Vicryl. A second suture of 0 Monocryl was used to imbricate the hysterotomy. The hysterotomy was hemostatic. The uterus, tubes and ovaries appeared overall normal. The uterus was then returned into the abdominal cavity. There was a small area in the midline of the hysterotomy that was having a small amount of bleeding. A obhyjn-fg-bpxse suture using 0 Monocryl was used to make the area hemostatic. The hysterotomy was noted to remain hemostatic inside the abdominal cavity. The fascia was noted to be hemostatic and the fascia was then reapproximated with running sutures of 0- Vicryl. During repair of the fascia there was noted to be additional bleeding and the abdominal cavity was explored and the adhesion to the right lower quadrant of the anterior surface of the uterus was noted to be bleeding and this was made hemostatic with a free tie of 0 Monocryl. The surface of the uterus where the adhesion was attached to was also noted to have some bleeding and this was made hemostatic with cauterization. The subcutaneous fat was reapproximated using 0 Vicryl. The skin was reapproximated using 4-0 Monocryl and Steri-strips were applied over the incision. Instrument, sponge, and needle counts were correct prior to the abdominal closure and at the conclusion of the case. Diagnosis: Stroke: No - Discharge Data Discharge Date: 05/27/20 Discharge Disposition: Home, Self-Care 01 Condition: Good - Referral to Home Health Primary Care Physician: Sukhi Malin MD - Discharge Diagnosis/Problem(s) (1) 39 weeks gestation of SNOMED Code(s): 44726448 ICD Code: Z3A.39 - 39 WEEKS GESTATION OF Status: Acute Current Visit: No (2) History of delivery, currently SNOMED Code(s): 913940533, 038853196 ICD Code: O34.219 - MATERNAL CARE FOR UNSP TYPE SCAR FROM PREVIOUS DEL Status: Acute Current Visit: No (3) History of section SNOMED Code(s): 184136471 ICD Code: Z98.891 - HISTORY OF UTERINE SCAR FROM PREVIOUS SURGERY Status: Acute Current Visit: No (4) Schizophrenia SNOMED Code(s): 17198517 ICD Code: F20.9 - SCHIZOPHRENIA, UNSPECIFIED Status: Acute Current Visit: No (5) Bipolar disease, chronic SNOMED Code(s): 02935258 ICD Code: F31.9 - BIPOLAR DISORDER, UNSPECIFIED Status: Acute Current Visit: No (6) GBS bacteriuria SNOMED Code(s): 92842368 ICD Code: R82.71 - BACTERIURIA Status: Acute Current Visit: No (7) Obesity affecting SNOMED Code(s): 493689899737, 997873123278 ICD Code: O99.210 - OBESITY COMPLICATING , UNSPECIFIED TRIMESTER Status: Acute Current Visit: No (8) ancestry requiring population-specific genetic screening SNOMED Code(s): 49400454, 903965851, 153686554 ICD Code: Z13.79 - ENCNTR FOR OTH SCREENING FOR GENETIC AND CHROMSOML ANOMALIES Status: Acute Current Visit: No (9) delivery delivered SNOMED Code(s): 491299363 ICD Code: O82 - ENCOUNTER FOR DELIVERY WITHOUT INDICATION Status: Acute Current Visit: Yes - Patient Summary/Data Operative Procedure(s) Performed: Repeat section with lysis of adhesions on the uterus. Complications: None Consults: Social work Hospital Course: Davida York was admitted for scheduled repeat section. She was taken back to the OR and given spinal injection for anesthesia. She was given Ancef 2 g IV for antibiotic prophylaxis. She was prepped and draped in the normal fashion. On 05/25/2020 she had a normal repeat delivery of a live male at 08:25. Apgars of 7 and 9. Weight of 3230 g (7 pounds 1.9 ounces). She was closed in a normal fashion. There were no complications with the procedure. Please see the operative report for full details. Her post operative course was uneventful. Her pain was well controlled and she had minimal lochia. She was ambulating, tolerating a regular diet and voiding normally. She was passing flatus and has not had a bowel movement. She was breast feeding without difficulty. She was evaluated by the social scientist due to history of bipolar disease and schizophrenia and determined to not have any significant concerns at this time. She was afebrile and her hematocrit was 30.9 on POD #1. She desired to be discharged home on the morning of POD #2. Her blood type is AB+. - Patient Instructions Diet: Regular Diet as Tolerated Activity: Apply Ice, As Tolerated, No Lifting Over 20 Pounds Activity, Other: Nothing in the vagina for 6 weeks Driving: Do Not Drive (While taking narcotic medications are having significant pain.) Showering/Bathing: May Shower Wound/Incision Care: Keep Operative Site/Wound Site Clean and Dry (Do not rub on the incision and pat dry the incision with showering. You may need to place a pad or clean washcloth under the skin to help keep the incision dry.) Notify Provider of: Fever, Increased Pain, Swelling and Redness, Drainage, Nausea and/or Vomiting Other/Special Instructions: Please contact your physician's office if you note any bleeding or pus coming from the abdominal incision. Please contact your physician's office if you have heavy vaginal bleeding enough to soak a pad in less than an hour for several hours. Monitor for any signs of an infection in the breasts with severe pain or warmth of the breast. - Discharge Plan *PRESCRIPTION DRUG MONITORING PROGRAM REVIEWED*: Yes *COPY OF PRESCRIPTION DRUG MONITORING REPORT IN PATIENT NASH: No (Only one prescription in log after her laparoscopic cholecystectomy) Home Medications: Home Meds Cyclobenzaprine HCl 10 mg PO TID PRN 05/24/20 [History] Docusate Sodium [Colace] 100 mg PO BID PRN 05/24/20 [History] Lurasidone HCl [Latuda] 40 mg PO DAILY 05/24/20 [History] Omeprazole 40 mg PO ACBREAKFAST 05/24/20 [History] Pnv No.103/Folic/Om3s/Fish Oil [ Gummies] 1 each PO DAILY 05/24/20 [History] Ascorbic Acid [Vitamin C] 250 mg PO DAILY 05/25/20 [History] Acetaminophen/oxyCODONE [Percocet 325-5 MG] 1 - 2 tab PO Q6H PRN #30 tablet 05/27/20 [Rx] Ibuprofen [Motrin] 600 mg PO Q6H PRN tablet 05/27/20 [Rx] Patient Handouts: and Medicine Use, Baby Blues, and Self-Care, Care After Delivery Referrals: Pasha Gant MD [Physician] - (Call and schedule consult for one week from discharge.) Sukhi Malin MD [Primary Care Provider] - (Follow-up in 2 weeks for routine visit or earlier as needed.) - Discharge Summary/Plan Comment DC Time >30 min.: No - Patient Data Vitals - Most Recent: Last Vital Signs Temp 36.2 C 05/27/20 08:52 Pulse 110 H 05/27/20 08:52 Resp 14 05/27/20 08:52 BP 126/84 05/27/20 08:52 Pulse Ox 100 05/27/20 08:52 Weight - Most Recent: 115.212 kg I&O - Last 24 hours: Intake & Output 05/26/20 05/27/20 05/27/20 22:59 06:59 14:59 Intake Total 320 Balance 320 Med Orders - Current: Current Medications Diphenhydramine HCl (Benadryl) 25 mg IVPUSH Q6H PRN PRN Reason: Itching or Nausea Last Admin: 05/25/20 15:40 Dose: 25 mg Documented by: Docusate Sodium (Colace) 100 mg PO Q12H KAREN Last Admin: 05/26/20 23:40 Dose: 100 mg Documented by: Ephedrine Sulfate (Ephedrine Sulfate) 5 mg IVPUSH SEECOMMENT PRN PRN Reason: Other Oxytocin/Lactated Ringer's (Pitocin In Lr 10 Units/1,000 Ml) 10 unit in 1,000 mls @ 100 mls/hr IV .CONTINUOUS KAREN; Protocol Ibuprofen (Motrin) 600 mg PO Q6H PRN PRN Reason: mild pain or fever Last Admin: 05/26/20 15:48 Dose: 600 mg Documented by: Magnesium Hydroxide (Milk Of Magnesia) 30 ml PO BEDTIME PRN PRN Reason: Constipation Naloxone HCl (Narcan) 0.1 mg IVPUSH SEECOMMENT PRN PRN Reason: Respiratory Depression Oxycodone/Acetaminophen (Percocet 325-5 Mg) 1 tab PO Q6H PRN PRN Reason: Pain (moderate 4-6) Oxycodone/Acetaminophen (Percocet 325-5 Mg) 2 tab PO Q6H PRN PRN Reason: Pain (severe 7-10) Last Admin: 05/27/20 03:09 Dose: 2 tab Documented by: Pantoprazole Sodium (Protonix) 40 mg PO DAILY@0730 [facility] Last Admin: 05/27/20 07:57 Dose: 40 mg Documented by: Prenat Multivit/Dimmit/Iron/Folic Ac ( Plus Iron) 1 each PO DAILY [facility] Last Admin: 05/27/20 08:25 Dose: 1 each Documented by: Discontinued Medications Bupivacaine HCl (Marcaine 0.5%) Confirm Administered Dose 30 ml .ROUTE .STK-MED ONE Stop: 05/25/20 07:11 Last Admin: 05/25/20 08:18 Dose: 20 ml Documented by: Cefazolin Sodium (Ancef) Confirm Administered Dose 2 gm .ROUTE .STK-MED ONE Stop: 05/25/20 07:15 Citric Acid/Sodium Citrate (Bicitra Solution) 30 ml PO ONETIME ONE Stop: 05/25/20 06:01 Last Admin: 05/25/20 06:30 Dose: 30 ml Documented by: Cefazolin Sodium/Dextrose 2 gm (/ Premix) 50 mls @ 100 mls/hr IV ONETIME ONE Stop: 05/25/20 06:59 Last Admin: 05/25/20 19:59 Dose: Not Given Documented by: Oxytocin/Lactated Ringer's (Pitocin In Lr 10 Units/1,000 Ml) 10 unit in 1,000 mls @ 100 mls/hr IV ASDIRECTED KAREN; Protocol Lactated Ringer's (Ringers, Lactated) 1,000 mls @ 125 mls/hr IV ASDIRECTED KAREN Last Admin: 05/25/20 06:29 Dose: 125 mls/hr Documented by: Lactated Ringer's (Ringers, Lactated) Confirm Administered Dose 1,000 mls @ as directed .ROUTE .STK-MED ONE Stop: 05/25/20 07:20 Lactated Ringer's (Ringers, Lactated) Confirm Administered Dose 1,000 mls @ as directed .ROUTE .STK-MED ONE Stop: 05/25/20 08:54 Dextrose/Lactated Ringer's (Dextrose 5%-Lactated Ringers) 1,000 mls @ 125 mls/hr IV ASDIRECTED KAREN Stop: 05/25/20 19:45 Last Admin: 05/25/20 12:50 Dose: 125 mls/hr Documented by: Ketorolac Tromethamine (Toradol) Confirm Administered Dose 30 mg .ROUTE .STK-MED ONE Stop: 05/25/20 07:18 Ketorolac Tromethamine (Toradol) 30 mg IVPUSH Q6H [facility] Stop: 05/26/20 03:01 Last Admin: 05/26/20 02:56 Dose: 30 mg Documented by: Metoclopramide HCl (Reglan) 10 mg IVPUSH ONETIME ONE Stop: 05/25/20 06:01 Last Admin: 05/25/20 06:31 Dose: 10 mg Documented by: Morphine Sulfate (Morphine) Confirm Administered Dose 0 mg .ROUTE .STK-MED ONE Stop: 05/25/20 07:17 Morphine Sulfate (Duramorph Pf) Confirm Administered Dose 1 mg .ROUTE .STK-MED ONE Stop: 05/25/20 07:17 Oxytocin (Pitocin) Confirm Administered Dose 10 unit .ROUTE .STK-MED ONE Stop: 05/25/20 07:18 Phenylephrine HCl (Kyrie-Synephrine) Confirm Administered Dose 10 mg .ROUTE .STK- MED ONE Stop: 05/25/20 07:15 Sodium Chloride (Saline Flush) 10 ml FLUSH ASDIRECTED PRN PRN Reason: Keep Vein Open
[2020-05-27] MEDS: Ibuprofen 600 MG Tab PO PRN (11:28)
[2020-05-27] MEDS: Docusate Sodium 100 MG Cap PO SCH (11:28)
== END 2020-05-27 11:40 | disposition home or self-care (01) | DRG 788 ==
LOC: JD.OB 04:38
PROVIDERS: ADMIT Obstetrics & Gynecology; ATTEND Obstetrics & Gynecology
PROC: 10D00Z1 Extraction of Products of Conception, Low, Open Approach (ICD-10-PCS; principal; 2020-05-25)
DX: O34.211 Maternal care for low transverse scar from previous cesarean delivery (principal); Z37.0 Single live birth; Z3A.39 39 weeks gestation of pregnancy; O99.214 Obesity complicating childbirth; E66.9 Obesity, unspecified; O99.344 Other mental disorders complicating childbirth; F20.9 Schizophrenia, unspecified
CPT/HCPCS: 01961; 36415; 59025; 85025; 86592; 86850; 86900; 86901; A9270-GY; J0690; J1200; J1885; J2270; J2274; J2370; J2590; J2765; J3490; J7120; J7121